=== PATIENT | female | born 1990 | race Caucasian/White ===

== ENCOUNTER 2016-10-31 05:43 | Day surgery (SDC) | payer OTHER ==
[~2016-10-31] VITALS: Ht 142.2 cm; Wt 47.5 kg
[2016-10-31] VITALS (8 sets, daily range): BP systolic 94–116; BP diastolic 50–91; PULSE 65–78; RESP 10–16; O2SAT 100
[2016-10-31] MEDS: Lactated Ringer's 1,000 ML IV SCH ×2 (05:26→07:53)
[~2016-10-31 05:43] MED LIST: NORG1TAB15 PO
[2016-10-31] MEDS ORDERED: Propofol 10,000 mCg/mL 20 mL Inj ONE (05:44)
[2016-10-31] MEDS ORDERED: Ondansetron 2 mg/mL 2 mL Inj ONE (05:44)
[2016-10-31] MEDS ORDERED: Dexamethasone 4 mg/mL Inj ONE (05:44)
[2016-10-31] MEDS ORDERED: fentaNYL-PF 50 mCg/mL 2 mL Inj ONE (05:44)
--- NOTE | 2016-10-31 06:41 | PCM.HPANE ---
Patient Data Surgeon Admitting Provider: Attending Provider:Efra Bowling MD Primary Care Physician:[facility] Other Provider:Minoo Sneed Anesthesia Reason for Visit Left Hand Subcutaneous Mass Ht/WT & BMI Height (Feet): 4 Height (Inches): 8.00 Weight (Kilograms): 47.5 Body Mass Index 23.00 Allergies Coded Allergies: No Known Allergies (Unverified , 10/29/16) Past Anesthesia History Anesthesia History: Denies:: Abnormal Airway, Anesthesia Reactions, Difficult Intubation, Fam Anesthesia Reaction Diabetes History Hx Diabetes?: No MRSA MRSA: No Medications Hypertension Medication: No Home Meds Incl Beta Ole: No Reported Medications Norgestimate-Ethinyl Estradiol (Tri-Sprintec)1 Each Tablet1 Each PO DAILY 10/29/16 History History of ENT Problems?: Yes HEENT History: Positive for:: TMJ (grinds, no nightguard) Denies:: Abnormal Airway Cataracts Difficult Intubation Dysphagia Glaucoma Hearing Problem Sinus Problem Other HEENT Pertinent History: bone graft for dental implant done lower left, no implant peg placed at this time Cardiovascular History: Denies:: AICD Abdominal Aortic Aneurism Atrial Fibrillation Heart Murmur Hypertension Irregular Heartbeat Pacemaker Hx of Respiratory Problem?: No Respiratory History: Denies:: Asthma COPD Emphysema Oxygen Administration Pneumonia Tuberculosis Use of C-PAP Machine Use of Inhalers / NEBS Hx Neurologic Problems?: No Neurological History: Denies:: CVA Headaches Multiple Sclerosis Parkinson's Disease Seizures TIA Hx of GI Problems?: No Gastrointestinal History: Denies:: Cirrhosis Gall Bladder Disease Gastroesphageal Reflux Gastrointestinal Bleeding Heartburn Hepatitis Hiatal Hernia Liver Disease Rectal Bleeding Hx of Problems?: No Genitourinary History: Denies:: Kidney Stones Urinary Tract Infection (gets one every few month, no current sx) Female Hx: Denies:: Currently Problems with Breasts? Skin History: Denies:: History Skin Disorders? Pressure Ulcers Hx Musculoskeletal Problems?: Yes Musculoskeletal History: Positive for:: Musculoskeletal Trauma (left hand subg mass current admission problem) Denies:: Back Injury Degenerative Joint Fibromyalgia Joint Replacement Myasthenia Gravis Osteoarthritis Rheumatoid Arthritis Systemic Lupus Hx of Psycho/Social Problems?: No Psycho Social History: Denies:: Anxiety Hx Depression Hx Surgeries?: Yes (oral surgery) Hx Any Other Health Problems?: Yes Other History: Denies:: Cancer Thyroid Disease History Blood Transfusions: Positive for:: Accept Blood Products? Denies:: Blood Transfusions Hx Diabetes: No Hx Alcohol Use: YesAlcoholic Drinks Per Day: once to twice monthHx Substance Use: Yes (marijuana rarely) Smoking Status: Former Smoker Have You Smoked inLast 12 mo: NoApprox How Many Cigarettes/day: ex smoker 1 year Stop/Bang S-Snoring: Do You Snore Loudly: No T-Tired: feel tired, fatigued: Yes O-Obsered: Observed not breath: No P-Blood Pressure: treated: No B- Body Mass Index > 35 kg/m2: No A- Age over 50: No N- Neck Large Circumference: No G- Gender Male: No YANELIS Total Score: 1 YANELIS Risk Assessment: Low Risk, <3 Yes Risk Assessment Category Category 1A: Patient has history of documented sleep apnea, and HAS NOT received any narcotic, sedative or anesthesia administration during this stay. Category 1B: Patient has history of documented sleep apnea, and HAS received any narcotic , sedative or anesthesia administration during this stay Category 2: Patient has SUSPECTED Obstructive Sleep Apnea, and HAS received any narcotic , sedative or anesthesia administration during this stay. Category 3: Patient has SUSPECTED Obstructive Sleep Apnea and HAS NOT received narcotic, sedative or anesthesia administration during this stay. Category 4: Outpatient in Procedural Areas with known sleep apnea or who screen positive for High Risk via the STOP/BANG questionnaire. Exam Exam Vital Signs Vital Signs Date Time Temp Pulse Resp B/P Pulse Ox O2 Delivery O2 Flow Rate FiO2 10/31/16 06:06 36.5 65 16 97/50 100 Room Air General Appearance: Alert, Oriented X3, Cooperative, No Acute Distress HEENT/AIRWAY: MP 2 Lungs: Clear to Auscultation, Normal Air Movement Heart: Exam Unremarkable, Regular Rate/Rhythm, No Murmurs/Rubs/Gallops Meds/Labs/Diagnostics Admission Meds Current Medications Lactated Ringer's (Lr) 1,000 ml @ 120 mls/hr Q8H20M IV Last administered on t 05:26; Start 10/31/16 at 05:00; Stop 10/31/16 at 13:19 Plan Impression Patient chart reviewed, patient interviewed and anesthestic plan with risks, benefits, and alternatives discussed, and informed consent obtained. NPO Status: 10/30 at 1900 ASA Physical Status: ASA1 Normal Healthy Anesthetic Plan: GA Bene/Risks/Altern/Consents: Yes HP Complete Prior to Induction: Yes Octavio Charles MD Oct 31, 2016 06:41
[2016-10-31] MEDS ORDERED: Lactated Ringer's 1,000 ML IV SCH (07:48)
[2016-10-31] MEDS ORDERED: Lactated Ringer's 500 ML IV PRN (07:48)
[2016-10-31] MEDS ORDERED: fentaNYL-PF 50 mCg/mL 2 mL Inj IVPUSH PRN (07:50)
[2016-10-31] MEDS ORDERED: Dexamethasone 4 mg/mL Inj IVPUSH PRN (07:50)
[2016-10-31] MEDS ORDERED: Atropine 0.4 mg/mL Inj IVPUSH PRN (07:50)
[2016-10-31] MEDS ORDERED: MetoCLOpramide 5 mg/mL 2 mL Inj IVPUSH PRN (07:50)
[2016-10-31] MEDS ORDERED: Ondansetron 2 mg/mL 2 mL Inj IVPUSH PRN (07:50)
[2016-10-31] MEDS ORDERED: EPHEDrine Sulfate 50 mg/mL Inj IVPUSH PRN (07:50)
[2016-10-31] MEDS ORDERED: Phenylephrine 10,000 mCg/mL Inj IVPUSH PRN (07:50)
[2016-10-31] MEDS ORDERED: HYDROmorphone 1 mg/mL Inj IVPUSH PRN (07:50)
[2016-10-31] MEDS ORDERED: hydrALAZINE 20 mg/mL Inj IVPUSH PRN (07:50)
[2016-10-31] MEDS ORDERED: Labetalol 5 mg/mL 4 mL Inj IV PRN (07:50)
[2016-10-31] MEDS ORDERED: Bupivacaine-MPF 0.5% 30 mL Inj INFILTRATE ONE (07:53)
[2016-10-31] MEDS ORDERED: oxyCODONE-Acetamin 5-325 mg Tablet PO PRN (08:25)
--- NOTE | 2016-10-31 08:39 | PCM.ANEP1 ---
Post Anesthesia Phase 1 PACU Phase 1 Assessment Vital Signs Vital Signs Date Time Temp Pulse Resp B/P Pulse Ox O2 Delivery O2 Flow Rate FiO2 10/31/16 08:35 37.0 72 14 102/64 100 Room Air 10/31/16 08:30 66 14 103/72 100 Room Air 10/31/16 08:25 66 10 109/56 100 Room Air 10/31/16 08:20 78 14 116/91 100 Room Air 10/31/16 08:18 36.6 77 12 111/62 100 Room Air 10/31/16 06:06 36.5 65 16 97/50 100 Room Air Anesthetic Administered: GA Level of Alertness: Awake, talking IRIZARRY's with Equal Strength: Yes Pain: No Nausea or Vomiting: No Oxygen Delivery: Simple Mask Lungs: Clear to Auscultation, Normal Air Movement Octavio Charles MD Oct 31, 2016 08:39
--- NOTE | 2016-10-31 08:59 | OP ---
[address] [address] OPERATIVE REPORT PATIENT: LYNETTE MARTINEZ : 1990 MR#: [id number] ADMIT: 10/31/2016 JOB ID: [id number] DATE OF SURGERY: 10/31/2016 PREOPERATIVE DIAGNOSIS(ES): Left hand subcutaneous mass, ulnar aspect, midportion of the 5th metacarpal. ICD 10 code R 22.32. POSTOPERATIVE DIAGNOSIS(ES): Left hand subcutaneous mass, ulnar aspect, midportion of the 5th metacarpal. ICD 10 code R 22.32. PROCEDURE: Removal of right hand subcutaneous mass, CPT code 48583. SURGEON: Dr. Efra Bowling. CHARGE AUDITOR: None. ANESTHESIA: General. ESTIMATED BLOOD LOSS: Less than 5 mL. DRAINS: None. COMPLICATIONS: None. SPECIMEN: Sent to Pathology. INDICATIONS: A 25-year-old female with a painful left subcutaneous mass over the dorsal ulnar aspect of the midportion of the left hand over the 5th metacarpal area. PROCEDURE: Under adequate general anesthetic, a well-padded tourniquet was applied to the left upper extremity. After appropriate time-out was called, the arm was prepped and draped in a sterile fashion and the arm was elevated, exsanguinated, tourniquet inflated to 250 mmHg. A curvilinear incision was fashioned over the dorsal ulnar aspect of the left hand just ulnar to the 5th metacarpal area. Care was taken to protect surrounding neurovascular structures. The mass was subcutaneous and it was shelled out in its entirety and sent to pathology. The mass was about 1 x1 cm. The wound was infiltrated with 0.5% plain Marcaine. Tourniquet released. Minimal hemostasis required. Subcutaneous layer closed with a couple interrupted sutures of 4-0 Monocryl and skin reapproximated with running subcuticular suture of 4-0 Monocryl. Mastisol and Steri-Strips were applied. The patient was taken to recovery room in stable condition. Sponge and needle count correct. No complications.
--- NOTE | 2016-10-31 12:39 | PCM.ANEP2 ---
Post Anesthesia Evaluation ASA/CMS Post Anesthesia VS in Patient's Normal Range?: Yes Resp Stable; Airway Patent?: Yes CV Function & Hydration Stable: Yes Mental Status Recovered?: Yes Pain control Satisfactory?: Yes N/V Control Satisfactory?: Yes Octavio Charles MD Oct 31, 2016 12:38
--- NOTE | 2016-11-03 12:06 | PATH ---
SURGICAL PATHOLOGY Attending Physician:Chana Brown CASE STATUS: Signed Out PATIENT NAME: LYNETTE MARTINEZ PID: [id number] : 1990 DATE COLLECTED:10/31/2016 15:42 SPECIMEN: Mass, NOS CLINICAL HISTORY: A: LEFT HAND MASS FINAL DIAGNOSIS: 1.SOFT TISSUE MASS, LEFT HAND: FIBROTIC NODULE (PLEASE SEE COMMENT). NO EVIDENCE OF MALIGNANCY OR DYSPLASIA. ICD10 CODE D23.9 NOTE: The specimen consists of acellular dense fibrous tissue. GROSS DESCRIPTION: The specimen is received in one formalin filled container labeled with the patient's name, sublabeled "left hand subcutaneous mass" and consists of a 0.9 x 0.9 x 0.6 CM perry-white portion of soft tissue. The specimen is inked blue, trisected and entirely submitted in one cassette. 10/31/2016 DAC MICRO DESCRIPTION: See diagnosis. ICD-9 CODES: CPT CODES: 1: 61136 Electronically Signed Out Christoph Romero MD [facility] [address], [place] [address] Technical component performed at [facility], [address] [place] [address] Ave[address], [place], [address]
== END 2016-10-31 23:59 | disposition home or self-care (01) ==
LOC: SAS 05:43
PROVIDERS: ATTEND Orthopaedic Surgery
DX: D23.62 Other benign neoplasm of skin of left upper limb, including shoulder (principal)
CPT/HCPCS: 11421; J0690; J1100; J2250; J2405; J7120